=== PATIENT | female | born 1945 | race Caucasian/White ===

== ENCOUNTER 2017-12-08 08:15 | Emergency (ER) | payer OTHER ==
[~2017-12-08] VITALS: Ht 157.5 cm; Wt 65.8 kg
[~2017-12-08 08:15] MED LIST: LANTUS100 U/ML; METFORMIN HCL500 MG; [UNRECOGNIZED DRUG - OTHER]
[2017-12-08] MEDS ORDERED: KETO10TA2 PO (13:25)
[2017-12-08] MEDS ORDERED: ORPHENADRINE C100 MG PO (13:25)
== END 2017-12-08 13:42 | disposition home or self-care (01) ==
LOC: ER 08:15
DX: S43.491A Other sprain of right shoulder joint, initial encounter (principal); S00.03XA Contusion of scalp, initial encounter; S19.80XA Other specified injuries of unspecified part of neck, initial encounter; R55 Syncope and collapse; W18.09XA Striking against other object with subsequent fall, initial encounter; Y93.89 Activity, other specified; Y92.098 Other place in other non-institutional residence as the place of occurrence of the external cause; Y99.8 Other external cause status

== ENCOUNTER 2018-11-18 19:25 | Emergency (ER) | payer OTHER ==
[~2018-11-18] VITALS: Ht 165.1 cm; Wt 68.0 kg
[~2018-11-18 19:25] MED LIST changes: +KETO10TA2 PO; +ORPHENADRINE C100 MG PO
[2018-11-18] MEDS ORDERED: NEURONTIN300 MG PO (19:43)
[2018-11-18] MEDS ORDERED: LANTUS SOL100 UNIT/1 SUBCUTANEO (19:43)
== END 2018-11-18 21:10 | disposition home or self-care (01) ==
LOC: ER 19:25
DX: S42.251A Displaced fracture of greater tuberosity of right humerus, initial encounter for closed fracture (principal); W18.09XA Striking against other object with subsequent fall, initial encounter; Y93.89 Activity, other specified; Y92.018 Other place in single-family (private) house as the place of occurrence of the external cause; Y99.8 Other external cause status

== ENCOUNTER 2021-12-11 12:12 | Emergency (ER) | payer OTHER ==
[~2021-12-11] VITALS: Ht 162.6 cm; Wt 63.5 kg
[~2021-12-11 12:12] MED LIST changes: +LANTUS SOL100 UNIT/1 SUBCUTANEO; +NEURONTIN300 MG PO
== END 2021-12-11 17:46 | disposition home or self-care (01) ==
LOC: ER 12:12
DX: S69.82XA Other specified injuries of left wrist, hand and finger(s), initial encounter (principal); S61.412A Laceration without foreign body of left hand, initial encounter; W19.XXXA Unspecified fall, initial encounter; Y93.89 Activity, other specified; Y92.89 Other specified places as the place of occurrence of the external cause; Z79.4 Long term (current) use of insulin; E11.9 Type 2 diabetes mellitus without complications; M25.532 Pain in left wrist

== ENCOUNTER 2023-09-05 13:21 | Emergency (ER) | payer OTHER ==
[~2023-09-05] VITALS: Ht 162.6 cm; Wt 58.5 kg
[2023-09-05] MEDS ORDERED: ROSUVASTATIN CA20 MG PO (14:53)
[2023-09-05] MEDS ORDERED: JANUVIA50 MG PO (14:53)
[2023-09-05] MEDS ORDERED: METFORMIN HCL500 M4 PO (14:53)
[2023-09-05] MEDS ORDERED: ENALAPRIL MALEA10 MG PO (14:53)
[2023-09-05] MEDS ORDERED: DEXAMETHASONE SODIUM PHOSPHATE 4 MG/ML VIAL IM STA (15:34)
[2023-09-05] MEDS ORDERED: KETOROLAC TROMETHAMINE 30 MG VIAL IM ONE (15:45)
[2023-09-05] MEDS ORDERED: NABUMETONE750 MG PO (18:51)
== END 2023-09-05 18:59 | disposition home or self-care (01) ==
LOC: ER 13:21
DX: M17.11 Unilateral primary osteoarthritis, right knee (principal); M25.561 Pain in right knee; E11.9 Type 2 diabetes mellitus without complications; Z79.4 Long term (current) use of insulin; E78.00 Pure hypercholesterolemia, unspecified; I10 Essential (primary) hypertension
CPT/HCPCS: 73564; 96372; 99283; J1100; J1885

== ENCOUNTER 2023-09-11 08:16 | Outpatient (CLI) | payer OTHER ==
[~2023-09-11 08:16] MED LIST changes: +ENALAPRIL MALEA10 MG PO; +JANUVIA50 MG PO; +METFORMIN HCL500 M4 PO; +NABUMETONE750 MG PO; +ROSUVASTATIN CA20 MG PO
== END 2023-09-11 08:34 | disposition home or self-care (01) ==
LOC: TOM 08:16
PROVIDERS: ATTEND General Practice
DX: M17.11 Unilateral primary osteoarthritis, right knee (principal)

== ENCOUNTER 2025-06-15 18:54 | Emergency (ER) | payer OTHER ==
[~2025-06-15] VITALS: Ht 152.4 cm; Wt 52.2 kg
[2025-06-15] MEDS ORDERED: KETOROLAC TROMETHAMINE 30 MG VIAL IU ONE (19:15)
[2025-06-15] MEDS ORDERED: ACETAMINOPHEN 500 MG GEL..CAP PO ONE ×2 (19:15→21:47)
[2025-06-15] MEDS ORDERED: MORPHINE SULFATE 4 MG/ML VIAL IV ONE (19:30)
[2025-06-15] MEDS ORDERED: ORPHENADRINE CITRATE 30 MG/ML AMPUL IM ONE (19:30)
[2025-06-15] MEDS ORDERED: 0.9 % SODIUM CHLORIDE 1,000 ML IV ONE (19:30)
[2025-06-15] MEDS ORDERED: KETOROLAC TROMETHAMINE 30 MG VIAL ONE (21:47)
[2025-06-15] MEDS ORDERED: ORPHENADRINE CITRATE 30 MG/ML AMPUL ONE (21:47)
[2025-06-16 02:05] LABS: BASO % 0.5 % (0.1-1.2); EOS # 0.08 (0.04-0.54); EOS % 0.7 % (0.7-7.0); LYMPH # 1.00 (1.18-3.74); LYMPH % 9.0 % (19.3-53.1); MEAN PLATELET VOLUME 10.60 fl (9.4-12.4); MONO # 0.76 (0.24-0.82); MONO % 6.9 % (4.7-12.5); NEUT # 9.08 (1.56-6.13); NEUT % 82.2 % (34.0-71.1); RED CELL DISTRIBUTION WIDTH 14.5 % (11.6-14.4)
[2025-06-16 02:10] LABS: URINE APPEARANCE Turbid; URINE BILIRRUBIN Negative (NEGATIVE); URINE BLOOD Moderate; URINE COLOR Yellow; URINE KETONE Trace (NEGATIVE); URINE LEUKOCYTE Moderate; URINE NITRATE Negative; URINE PROTEIN 30 (NEGATIVE); URINE UROBILINOGEN 0.2 E.U./dl
[2025-06-16 02:13] LABS: URINE RBC 77.6 uL (0.0-20.8)
[2025-06-16 02:22] LABS: URINE CAST 0.84 uL (0.0-1.40); URINE EPITHELIAL CELLS 1.0 uL (0.0-38.8); URINE GLUCOSE >=1000 MG/DL (NEGATIVE); URINE WBC > 5548.3 uL (0.0-23.2)
[2025-06-16 02:33] LABS: INR 1.04
[2025-06-16 02:40] LABS: ALT/SGPT 18.0 U/L (12-78); AST/SGOT 17.0 U/L (15-37); BILIRUBIN TOTAL 0.45 mg/dL (0.3-1.2); BUN CREA RATIO 20.0 (7.0-25.0); CREATININE SERUM 1.21 mg/dL (0.55-1.02); GFR 42.7; GLOBULINA 4.1 G/DL (2.4-3.5); OSMOLALITY SERUM 295.0 MOSM/KG (275-295); PHOSPHOKINASE CREATININE 69.0 U/L (26-192)
[2025-06-16 02:42] LABS: GLUCOSE FASTING 271.0 mg/dL (65-100)
[2025-06-16] MEDS ORDERED: TRAMADOL HCL50 MG PO (11:36)
[2025-06-16] MEDS ORDERED: PEPCID AC20 MG PO (11:36)
[2025-06-16] MEDS ORDERED: NORFLEX100MG PO (11:36)
[2025-06-16] MEDS ORDERED: ECOTRIN81 MG PO (11:36)
[2025-06-16] MEDS ORDERED: MACROBID 100 M100 MG PO (11:37)
== END 2025-06-16 15:24 | disposition home or self-care (01) ==
LOC: ER 18:54
PROVIDERS: General Practice
DX: S72.111A Displaced fracture of greater trochanter of right femur, initial encounter for closed fracture (principal); S70.01XA Contusion of right hip, initial encounter; W18.39XA Other fall on same level, initial encounter; Y93.89 Activity, other specified; Y92.012 Bathroom of single-family (private) house as the place of occurrence of the external cause; Y99.9 Unspecified external cause status; E11.9 Type 2 diabetes mellitus without complications; Z79.4 Long term (current) use of insulin; Z79.84 Long term (current) use of oral hypoglycemic drugs
CPT/HCPCS: 36415; 70450; 71045; 73502; 73552; 73700; 93005; 96365; 96366; 96372; 99284; J1885; J2270; J2360; J7030